=== PATIENT | female | born 1965 | race Caucasian/White ===

== ENCOUNTER 2020-06-06 08:00 | Outpatient (RCR) | payer BC, SELFPAY ==
--- NOTE | 2020-06-06 10:43 | PTOPEVAL ---
Thank you for referring Raine Garza to [facility].? The patient is scheduled to be seen for therapy? ____x/week for ___ weeks. Please review, sign, date and return this plan of care SOUTH. I agree with and certify that the following plan of care is medically necessary. Referring Physician Date Admitting Provider: Attending Provider: LAVELL MONTANA Referring Provider: DANAY Outpatient Evaluation Start: 06/06/20 08:02 Freq: Status: Active Protocol: Document 06/06/20 08:02 ACR (Rec: 06/06/20 09:43 ACR [id number]) Therapy Assessment Status Assessment Status Assessment Status Evaluation Evaluation Information Problem Diagnosis Parkinsons Onset 06/10/19 Subjective Information Patient states she has had Query Text:As Reported By Patient/ balance issues, but it has Family gotten worse the past year. She states she has had about 4 -5 falls in the past year. Patient states she trips easily, scuffs her feet, is unable to walk backwards and has difficulty with turning. Patient states she has difficulty with just about everything because she is afraid of falling. She states that the stairs are difficult because of the starting and stopping. Prior Level of Function Activity Level (Last 3 Months) Occupation homemaker Hand Dominance Right Activity of Daily Living Ability Independent Indoor/Home Mobility Independent Community Mobility Independent Stairs Ability Needs Some Help Functional Cognition (Planning, Shopping Independent , Taking Medications) Cooking Yes Cleaning Yes Laundry Yes Shopping Yes Driving Yes Pain Assessment Timing of Pain Assessment Timing of Pain Assessment Pre-Treatment Self Report Self Report Pain Level 0 Pain Score Pain Score 0: Self Report Interventions Used Interventions Used By Clinicians Activity or ADL's,Education, Exercise Lower Extremity Muscle Strength Testing Hip Strength Bilateral Hip Flexion Strength 4 Good Hip Abduction Strength 4 Good Knee Strength Bilateral Knee Flexion Strength 4 Good Knee Extension Strength 3+ Fair + Ankle Strength Bilateral
--- NOTE | 2020-07-14 16:54 | PTOPEVAL ---
Thank you for referring Raine Garza to [facility].? The patient is scheduled to be seen for therapy? ____x/week for ___ weeks. Please review, sign, date and return this plan of care SOUTH. I agree with and certify that the following plan of care is medically necessary. Referring Physician Date Admitting Provider: Attending Provider: LAVELL MONTANA Referring Provider: Jose EnriquePT Outpatient Evaluation Start: 06/06/20 08:02 Freq: Status: Active Protocol: Document 07/14/20 14:02 ACR (Rec: 07/14/20 15:34 ACR [id number]) Therapy Assessment Status Assessment Status Assessment Status Progress Evaluation Information Problem Diagnosis Parkinsons Onset 06/10/19 Subjective Information Patient states that since Query Text:As Reported By Patient/ beginning therapy, maneuvering Family around the house and her static balance has gotten better. She continues to have difficulty with walking, stairs, dynamic balance. She still cannot get in and out of the bathtub and if she medicine is off she is shaky. She also states she is pretty stiff. Pain Assessment Timing of Pain Assessment Timing of Pain Assessment Assessment Self Report Self Report Pain Level 0 Pain Score Pain Score 0: Self Report Lower Extremity Muscle Strength Testing Hip Strength Bilateral Hip Flexion Strength 4 Good Hip Abduction Strength 4 Good Knee Strength Bilateral Knee Flexion Strength 4+ Good + Knee Extension Strength 4 Good Ankle Strength Bilateral Ankle Dorsiflexion Strength 5 Normal Ankle Plantarflexion Strength 5 Normal Muscle Length Testing Muscle Length Testing Piriformis w/Hip Flexion >90 Degrees (R) Moderate Tightness,(L) Moderate Tightness Left Hamstring Length 25 Query Text:(90 - 90 Position) Right Hamstring Length 30 Query Text:(90 - 90 Position) Balance Assessment Tinetti Balance Assessment Sitting Balance Steady, safe Ability to Arise Able, uses arms to help Attempts to Arise Arises on 1st attempt Immediate Standing Balance Steady w/o support Standing Balance Narrow stance w/o support Nudged Response Staggers, catches self Standing with Eyes Closed Steady Step Pattern Turning 360 Degrees Continuous steps Stability Turning 360 Degrees Steady Sitting Down Safe, steady Initiation of Gait
--- NOTE | 2020-08-10 17:27 | PCPTNOTE ---
On 08/10/20, the student, [Linh Jordan, [facility] ], provided care and completed [employer] documentation on this patient. I have reviewed the student's documentation and agree with the findings.
--- NOTE | 2020-08-17 16:56 | PCPTNOTE ---
On 08/17/20, the student, [Linh Jordan, [facility] ], provided care and completed [employer] documentation on this patient. I have reviewed the student's documentation and agree with the findings.
== END 2020-08-26 13:35 | disposition home or self-care (01) ==
LOC: CHSPT 08:00
DX: G20 Parkinson's disease (principal)
CPT/HCPCS: 97110; 97112; 97161; 97530

== ENCOUNTER 2022-06-26 14:00 | Outpatient (RCR) | payer OTHER, SELFPAY ==
--- NOTE | 2022-04-04 21:50 | BUPTOPEVAL1 ---
Assessment and note entered by JT File, PT Evaluation Information Assessment Status Evaluation Diagnosis parkinsons Onset 03/01/22 Subjective Information patient reports she had the DBS surgery in december of 2021. she reports as part of her recovery she is now ready to work on her balance, endurance, walking, and strength. she reports she has gone through several adjustements on the DBS. she reports she is now more stable on her feet, but still feels unsteady. she reports she has fallen a few times since the beginning of the year . she reports she returns to the MD for adjustment of the DBS on 04/02/22. she reports thus far she feels the DBS has helped, but reports she still needs some adjustments. she reports when she falls she mostly looses her balance. Reported Pain Level Pain Score 0: Self Report Assessment PT Clinical Summary mrs. mcpherson presents to skilled PT services for rehab following implantation of a DBS. she presents this date with continued deficits in coordination, balance, ambulation safety, and functional activity performance/independence. she would benefit from continued skilled PT to address her objective/functional deficits to achieve a better quality of life. Plan of Care Interventions Gait Training,Neuro Re-education,Patient/Caregiver Educati,Therapeutic Activities,Therapeutic Exercise PT Services Indicated Yes Treatment Frequency and 3x weekly for 12 visits Duration These treatments will address the objective and functional deficits as defined above. The patient will be advanced safely and appropriately in order for the patient to progress towards his/her prior level of function. Additional exercises will be introduced and as well as a comprehensive home exercise program upon discharge, if needed, ?to ensure carryover of functional gains achieved in the clinic. This treatment plan has been reviewed and agreement upon by the patient.
--- NOTE | 2022-04-18 07:16 | BUPTOPEVAL1 ---
Assessment and note entered by [facility] Evaluation Information Assessment Status Progress Diagnosis parkinson's disease Onset 03/01/22 Subjective Information Pt. reports that she is still experiencing occasional falls. She states that despite this she has notices her walking is improved. She continues to deny any use of an AD. Reported Pain Level Pain Score 0: Self Report Assessment PT Clinical Summary Pt. functional testing scores have demonstrates no signficaint change at this time. Discussed with pt. the possibility of use of a walker in the home to decrease fall. risk. She has currently attended at total of 9 treatment sessions. At this time recommend continued Plan of Care Interventions Gait Training,Neuro Re-education,Therapeutic Activities,Therapeutic Exercise PT Services Indicated Yes Treatment Frequency and Continue treatment 2x/week for 6 visits Duration These treatments will address the objective and functional deficits as defined above. The patient will be advanced safely and appropriately in order for the patient to progress towards his/her prior level of function. Additional exercises will be introduced and as well as a comprehensive home exercise program upon discharge, if needed, ?to ensure carryover of functional gains achieved in the clinic. This treatment plan has been reviewed and agreement upon by the patient.
--- NOTE | 2022-05-07 10:54 | PTOPREEVAL ---
Assessment and note entered by Jessica Wolfe DPT Evaluation Information Assessment Status Re-evaluation Diagnosis parkinson's disease Onset 03/01/22 Subjective Information Patient reports she has noticed an improvement in LE strength, balance and endurance. She reports her fear of falling seems to lead to most of her falls. She returns to MD for DBS adjustment today. Reported Pain Level Pain Score 0: Self Report Assessment PT Clinical Summary Patient demonstrates improvement in balance this date. She demonstrates improved TUG, STS and Tinneti balance scores decreasing her risk of falls. She continues to have impaired LE strength and balance and would benefit from continued skilled PT to address remaining impairments and return to PLOF. Plan of Care Interventions Gait Training,Neuro Re-education,Therapeutic Activities,Therapeutic Exercise PT Services Indicated Yes Treatment Frequency and Continue treatment 2x/week for 6 visits Duration These treatments will address the objective and functional deficits as defined above. The patient will be advanced safely and appropriately in order for the patient to progress towards his/her prior level of function. Additional exercises will be introduced and as well as a comprehensive home exercise program upon discharge, if needed, ?to ensure carryover of functional gains achieved in the clinic. This treatment plan has been reviewed and agreement upon by the patient.
--- NOTE | 2022-05-28 17:46 | BUSTOPEVAL1 ---
Assessment and note entered by BARBIE Mejia Evaluation Information Assessment Status Evaluation Diagnosis Parkinson's disease Subjective Information Patient was diagnosed with Parkinson's disease in 2017 but has noticed an increase in difficulty speaking with impaired speech intelligibility. She often has to repeat herself and feels that her speech is more slurred than it was previously. Reported Pain Level Pain Score 0: Self Report Pain Score 0: Self Report Pain Score 0: Self Report Pain Score 0: Self Report Pain Score 0: Self Report Pain Score 0: Self Report Pain Score 0: Self Report Pain Score 0: Self Report Pain Score 0: Self Report Pain Score 0: Self Report Pain Score 0: Self Report Pain Score 0: Self Report Pain Score 0: Self Report Pain Score 0: Self Report Pain Score 0: Self Report Pain Score 0: Self Report Pain Score 0: Self Report Pain Score 0: Self Report Pain Score 0: Self Report Pain Score 0: Self Report Pain Score 0: Self Report Pain Score 0: Self Report Assessment ST Clinical Summary Patient was referred for an ST evaluation due to concerns with worsening speech intelligibility due to Parkinson's disease. The patient reported that she often has to repeat herself and has more difficulty as the day progresses. Increased difficulty reported with more complex words and length of sentences/message spoken. The patient currently participates in [employer] group via zoom through [employer] and had a Deep Brain Stimulator placed 2021. Patient reported that she should begin to see improvements as the stimulator is adjusted around 6 months after placement. Various areas were assessed including; respiratory strength/coordination, speech intelligibility at the word, phrase, sentence, paragraph and conversation level, and oral motor strength/ coordination. Patient presented with 74% intelligible speec
--- NOTE | 2022-05-30 11:44 | PTOPDC ---
Assessment and note entered by Jessica Wolfe DPT Evaluation Information Assessment Status Evaluation Diagnosis parkinson's disease Onset 03/01/22 Subjective Information Patient reports she has not had any falls recently . She reports she has not used an AD at home. She reports compliance with HEP and reports that she continues to noticed improved balance Reported Pain Level Pain Score 0: Self Report Assessment PT Clinical Summary Patient was seen for 22 visits of skilled PT from 03/28/22-05/30/22. She made great progress in balance during POC. She demonstrates improved TUG, 5xSTS, and Tinetti scoring indicating a decrease in fall risk. She denies any recent falls and is compliant with HEP. She is appropriate for DC at this time. Plan of Care PT Services Indicated No
--- NOTE | 2022-06-28 14:03 | PCSTNOTE ---
This treatment is being continued on visit number [id number]. Please see documentation on both accounts to view progress. Completed interventions, outcomes, and problems have been marked as Inactive to facilitate the copying of the Care plan routine for recurring accounts.
--- NOTE | 2022-07-02 12:37 | PCSTNOTE ---
This treatment is being continued on visit number [id number]. Please see documentation on both accounts to view progress. Completed interventions, outcomes, and problems have been marked as Inactive to facilitate the copying of the Care plan routine for recurring accounts.
== END 2022-06-26 23:59 | disposition home or self-care (01) ==
LOC: CHSST 14:00
DX: G20 Parkinson's disease (principal)
CPT/HCPCS: 92507; 92522; 92524; 97110; 97112; 97161; 97530

== ENCOUNTER 2022-08-06 10:00 | Outpatient (RCR) | payer OTHER, SELFPAY ==
--- NOTE | 2022-07-02 12:37 | PCSTNOTE ---
The treatment documented on this account is a continuation of the treatment documented on visit number [id number]. Please see documentation on both accounts to view progress. The Plan of Care has been transitioned and updated within the new A#. I have addressed and agree with the discipline specific Problems, Interventions, and Goals for the current certification period. Completed interventions, outcomes, and problems have been marked as Inactive to facilitate the copying of the Care plan routine for recurring accounts.
--- NOTE | 2022-08-21 14:11 | PCSTNOTE ---
ST session cancelled for August 20 secondary to CR[employer]ER being out sick for the day.
--- NOTE | 2022-09-18 13:46 | BUSTOPDC ---
Assessment and note entered by Estefani oFrbes PROPERTY PRESERVATION SPECIALIST Evaluation Information Assessment Status Discharge - Pt Not Present Diagnosis Parkinson's disease Subjective Information Patient was diagnosed with Parkinson's disease in 2017 but has noticed an increase in difficulty speaking with impaired speech intelligibility. Patient has completed a total of 9 ST sessions to target speech intelligibility and voice with a slight improvement noted. Patient reported that depending on medication sometimes she speaks fluently but once she takes medication for Parkinson's disease it soon impacts her speech until medication has worn off again. Assessment ST Clinical Summary Patient was referred for an ST evaluation due to concerns with worsening speech intelligibility due to Parkinson's disease. The patient reported that has noticed some improvements in speech intelligibility through the use of trained compensatory techniques. Patient continues to demonstrated difficulty with overall speech skills due to current medication for Parkinson's disease . Patient reported that she is going to speak with doctors regarding medication and if any other options are available. Patient has reached max rehab potential at this time and will be discharged from . Patient's last ST session was on 08-06-22. Plan of Care Interventions Treatment of Speech,Treatment of Voice Treatment Frequency and Discharge patient at this time with max rehab Duration potential being met currently.
== END 2022-08-06 19:00 | disposition home or self-care (01) ==
LOC: CHSST 10:00
DX: G20 Parkinson's disease (principal)
CPT/HCPCS: 92507

== ENCOUNTER 2022-08-30 11:04 | Outpatient (RCR) | payer OTHER, SELFPAY ==
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
--- NOTE | 2022-08-30 11:56 | OPREHPOC ---
Outpatient Therapy Plan of Care This is a Multidisciplinary Plan of Care that may contain components documented by all disciplines (PT, OT, and ST.) PT Problem 1 PT Problem #1 Knowledge Deficit PT Goal 1 Goal The patient will demonstrate independence in a home exercise program to continue after discharge from formal PT. Target Visit 12 PT Problem 2 PT Problem #2 Impaired Balance PT Goal 1 Goal The patient will improve her Tinetti Balance score by 5 points demonstrating a less likely fall risk . Target Visit 12 PT Problem 3 PT Problem #3 Impaired Endurance PT Goal 1 Goal The patient will demonstrate improved hip abduction and extension strength to 4+/5 to provide support for gait and balance. Target Visit 12 PT Problem 4 PT Problem #4 Impaired Gait PT Goal 1 Goal The patient will be able to ambulate 600 ft with SBA during the 6 minute walk test with no LOB. Target Visit 12
--- NOTE | 2022-09-25 15:46 | PTOPPROGNS ---
Assessment and note entered by JT File, PT Evaluation Information Assessment Status Progress Diagnosis Parkinson's Disease, falls, poor balance Subjective Information Mrs. Garza reports no pain present throughout session today. Patient notes falling last week, and presents with bruises on her L wrist and L knee. She notes that since initiating physical therapy she feels like her balance and strength have improved. Assessment PT Clinical Summary Raine Garza has attended 10 sessions of skilled therapy to address poor balance and frequent falls . She desmonstrated improved times with TUG and 5 times sit to stand tests today, however no improvement in the Tinneti score. She displayed improved hip abduction strength, allowing for better ability to perform functional activities such as stair climbing. Patient continues to have difficulty with walking, static balance, and dynamic balance, causing her to be at high risk for falling. Patient will benefit from continued skilled PT to address these limitations. Plan of Care Interventions Gait Training,Neuro Re-education,Patient/Caregiver Educati,Therapeutic Activities,Therapeutic Exercise PT Services Indicated Yes Treatment Frequency and continue POC for 3 times a week for remaining 2 Duration visits These treatments will address the objective and functional deficits as defined above. The patient will be advanced safely and appropriately in order for the patient to progress towards his/her prior level of function. Additional exercises will be introduced and as well as a comprehensive home exercise program upon discharge, if needed, ?to ensure carryover of functional gains achieved in the clinic. This treatment plan has been reviewed and agreement upon by the patient.
--- NOTE | 2022-09-26 13:45 | OPREHPOC ---
Outpatient Therapy Plan of Care This is a Multidisciplinary Plan of Care that may contain components documented by all disciplines (PT, OT, and ST.) PT Problem 1 PT Problem #1 Knowledge Deficit PT Goal 1 Goal The patient will demonstrate independence in a home exercise program to continue after discharge from formal PT. Target Visit 12 Progress Partially Met Comment independent with current HEP, continue progressing PT Problem 2 PT Problem #2 Impaired Balance PT Goal 1 Goal The patient will improve her Tinetti Balance score by 5 points demonstrating a less likely fall risk . Target Visit 12 Progress Partially Met Comment progressing PT Problem 3 PT Problem #3 Impaired Endurance PT Goal 1 Goal The patient will demonstrate improved hip abduction and extension strength to 4+/5 to provide support for gait and balance. Target Visit 12 Progress Partially Met Comment progressing PT Problem 4 PT Problem #4 Impaired Gait PT Goal 1 Goal The patient will be able to ambulate 600 ft with SBA during the 6 minute walk test with no LOB. Target Visit 12 Progress Partially Met Comment distance achieved, patient still requires CGA for safety
--- NOTE | 2022-10-03 07:23 | PTOPREEVAL ---
Assessment and note entered by JT File, PT Evaluation Information Assessment Status Re-evaluation Diagnosis Parkinson's Disease, falls, poor balance Subjective Information Mrs. Garza reports feeling good today. She believes that her balance has improved since starting physical therapy and she notes no falls this week. She is leaving for a cruise next Saturday and feels comfortable walking with support for this trip. Assessment PT Clinical Summary Raine Garza has attended 12 sessions of skilled therapy to address poor balance and frequent falls . She demonstrated similar scores with TUG, 5xSTS, 6 min walk test, and Tinnetti balance as previous assessment on 09/25/22. Per the Tinetti patient is a high fall risk and would benefit from continued balance and coordination activities. Patient demonstrated improved balance righting during today's session, as she was able to regain balance ~90% of the time independently. She continues to show impairments in static balance, dynamic balance, walking, and strength. Patient would benefit from continued skilled therapy 1x/week in a maintenance type program due to her diagnosis of parkinsons disease to continue addressing impairments to improve/maintain her safety with ambulating in her home and in the community and decrease fall risk. Plan of Care Interventions Gait Training,Neuro Re-education,Patient/Caregiver Educati,Therapeutic Activities,Therapeutic Exercise PT Services Indicated Yes Treatment Frequency and 1 x/week for 4 visits Duration These treatments will address the objective and functional deficits as defined above. The patient will be advanced safely and appropriately in order for the patient to progress towards his/her prior level of function. Additional exercises will be introduced and as well as a comprehensive home exercise program upon discharge, if needed, ?to ensure carryover of functional gains achieved in the clinic. This treatment plan has been reviewed and agreement upon by the patient.
--- NOTE | 2022-10-03 07:23 | OPREHPOC ---
Outpatient Therapy Plan of Care This is a Multidisciplinary Plan of Care that may contain components documented by all disciplines (PT, OT, and ST.) PT Problem 1 PT Problem #1 Knowledge Deficit PT Goal 1 Goal The patient will demonstrate independence in a home exercise program to continue after discharge from formal PT. Target Visit 12 Progress Met Comment independent with current HEP, continue progressing PT Problem 2 PT Problem #2 Impaired Balance PT Goal 1 Goal The patient will improve her Tinetti Balance score by 5 points demonstrating a less likely fall risk . Target Visit 16 Progress Partially Met Comment progressing PT Problem 3 PT Problem #3 Impaired Endurance PT Goal 1 Goal The patient will demonstrate improved hip abduction and extension strength to 5/5 to provide support for gait and balance. Target Visit 16 Progress Partially Met Comment goal met, adjusted to continue strengthening activities PT Problem 4 PT Problem #4 Impaired Gait PT Goal 1 Goal The patient will be able to ambulate 600 ft with SBA during the 6 minute walk test with no LOB. Target Visit 16 Progress Partially Met Comment distance achieved, patient still requires CGA for safety
--- NOTE | 2022-12-25 16:40 | PCPTNOTE ---
Patient discharged due to completion of POC
== END 2022-10-05 23:59 | disposition home or self-care (01) ==
LOC: CHSPT 11:04
DX: G20 Parkinson's disease (principal); R26.81 Unsteadiness on feet; R29.6 Repeated falls
CPT/HCPCS: 97112; 97161; 97530; 97750

== ENCOUNTER 2023-01-25 14:34 | Outpatient (RCR) | payer OTHER, SELFPAY ==
--- NOTE | 2023-01-25 15:37 | OPREHPOC ---
Outpatient Therapy Plan of Care This is a Multidisciplinary Plan of Care that may contain components documented by all disciplines (PT, OT, and ST.) PT Problem 1 PT Problem #1 Knowledge Deficit PT Goal 1 Goal Patient to demonstrate independence with HEP Target Visit 5 PT Problem 2 PT Problem #2 Impaired Functional Mobil PT Goal 1 Goal 1. Patient to ambulate 1000' during 6 min walk test to improve community ambulation 2. Patient to improve Tinetti by 5 points to decrease fall risk 3. Patient to report no falls while performing hosue hold tasks since start of PT Target Visit 10 PT Problem 3 PT Problem #3 Impaired Gait PT Goal 1 Goal Patient to ambulate with no cross over stepping to decrease fall risk Target Visit 10
--- NOTE | 2023-01-25 15:37 | PTOPEVAL1 ---
Assessment and note entered by Jessica Wolfe DPT Evaluation Information Assessment Status Evaluation Diagnosis weakness, falls Onset 01/01/23 Subjective Information Patient has history of Parkinson's with decreased balance and falls. She reports she has a DBS and is getting it adjusted every 2 months. She reports she thinks the DBS adjustments and helping. She reports she is due for an adjustment on 01/29/23. She reports she is not using an AD and had a falls a few weeks ago getting out of the shower. She reports difficulty wtih balance, cleaning out the instrument designer, reaching into cabinets and doing her laundry. She is not driving and is at home alone throughout the day. Reported Pain Level Pain Score 0: Self Report Assessment PT Clinical Summary Mrs. Garza is a 57 year old female who presnts to PT with decreased balance and falls. Patient demonstrates impaired balance with functional testing and impaired gait impairing her ability to ambulate within the home and in the community and complete house hold tasks without falls. She would benefit from skilled PT to address impairments and return to PLOF. Plan of Care Interventions Gait Training,Hot Pack/Cold Pack,Manual Therapy, Neuro Re-education,Patient/Caregiver Educati, Therapeutic Activities,Therapeutic Exercise PT Services Indicated Yes Treatment Frequency and 2x weekly for 10 visits Duration These treatments will address the objective and functional deficits as defined above. The patient will be advanced safely and appropriately in order for the patient to progress towards his/her prior level of function. Additional exercises will be introduced and as well as a comprehensive home exercise program upon discharge, if needed, ?to ensure carryover of functional gains achieved in the clinic. This treatment plan has been reviewed and agreement upon by the patient.
--- NOTE | 2023-03-01 13:51 | OPREHPOC ---
Outpatient Therapy Plan of Care This is a Multidisciplinary Plan of Care that may contain components documented by all disciplines (PT, OT, and ST.) PT Problem 1 PT Problem #1 Knowledge Deficit PT Goal 1 Goal Patient to demonstrate independence with HEP Target Visit 5 Progress Met PT Problem 2 PT Problem #2 Impaired Functional Mobil PT Goal 1 Goal 1. Patient to ambulate 1000' during 6 min walk test to improve community ambulation 2. Patient to improve Tinetti by 5 points to decrease fall risk 3. Patient to report no falls while performing hosue hold tasks since start of PT Target Visit 18 Progress Partially Met PT Problem 3 PT Problem #3 Impaired Gait PT Goal 1 Goal Patient to ambulate with no cross over stepping to decrease fall risk Target Visit 18 Progress Partially Met
--- NOTE | 2023-03-01 13:51 | PTOPREEVAL ---
Assessment and note entered by Jessica Wolfe DPT Evaluation Information Assessment Status Evaluation Diagnosis weakness, falls Onset 01/01/23 Subjective Information Patient reports since last DBS adjustment she feels like her legs are weaker and have poor coordination. She has had one fall since start of care where she is unsure of what was the cause. Reported Pain Level Pain Score 0: Self Report Assessment PT Clinical Summary Mrs. Garza has been seen for 10 visits of skilled PT. She demonstrates improve balance this date with Tinetti scoring. She continues to have deficts in balance with 6 min walk test and gait mechanincs. She she has had 1 fall since start of care. She would benefit from continued skilled PT to address remaining impairments and return to PLOF. Plan of Care Interventions Gait Training,Hot Pack/Cold Pack,Manual Therapy, Neuro Re-education,Patient/Caregiver Educati, Therapeutic Activities,Therapeutic Exercise PT Services Indicated Yes Treatment Frequency and continue 2x weekly for 8 visits Duration These treatments will address the objective and functional deficits as defined above. The patient will be advanced safely and appropriately in order for the patient to progress towards his/her prior level of function. Additional exercises will be introduced and as well as a comprehensive home exercise program upon discharge, if needed, ?to ensure carryover of functional gains achieved in the clinic. This treatment plan has been reviewed and agreement upon by the patient.
--- NOTE | 2023-04-05 14:40 | OPREHPOC ---
Outpatient Therapy Plan of Care This is a Multidisciplinary Plan of Care that may contain components documented by all disciplines (PT, OT, and ST.) PT Problem 1 PT Problem #1 Knowledge Deficit PT Goal 1 Goal Patient to demonstrate independence with HEP Target Visit 5 Progress Met PT Problem 2 PT Problem #2 Impaired Functional Mobil PT Goal 1 Goal 1. Patient to ambulate 1000' during 6 min walk test to improve community ambulation 2. Patient to improve Tinetti by 5 points to decrease fall risk 3. Patient to report no falls while performing house hold tasks since start of PT Target Visit 18 Progress Not Met PT Problem 3 PT Problem #3 Impaired Gait PT Goal 1 Goal Patient to ambulate with no cross over stepping to decrease fall risk Target Visit 18 Progress Not Met
--- NOTE | 2023-04-05 14:40 | PTOPDC ---
Assessment and note entered by Jessica Wolfe DPT Evaluation Information Assessment Status Re-evaluation Diagnosis weakness, falls Onset 01/01/23 Subjective Information patient reports she has not had any falls since last re-evaluation. she reports her balance and dyskinesia's have improve Reported Pain Level Pain Score 0: Self Report Assessment PT Clinical Summary Mrs. Garza attended 17 visits of skilled PT with good progression towards goals. She did not meet goals but did progress well. She has not had any falls since last re-evaluation and is independent with HEP. She will be discharged at this time. Plan of Care PT Services Indicated No
== END 2023-04-25 23:59 | disposition home or self-care (01) ==
LOC: CHSPT 14:34
DX: G20.B2 Parkinson's disease with dyskinesia, with fluctuations (principal)
CPT/HCPCS: 97110; 97112; 97150; 97161; 97530; 97750

== ENCOUNTER 2023-05-19 17:40 | Emergency (ER) | payer OTHER, SELFPAY ==
--- NOTE | ~2023-05-19 | CT_ITS ---
EXAMINATION: CT brain wo con DATE: 05/19/2023 18:18 INDICATION: fall- Posterior skull laceration/Headache/cervical pain . TECHNIQUE: Computed tomography (CT) of the head was performed without intravenous contrast. The mA wa s adjusted according to patient size. Iterative reconstruction technique was employed. The dose-lengt h product was 681.00 mGy-cm. COMPARISON: None. FINDINGS: No acute intracranial hemorrhage or extra-axial fluid collection. No hydrocephalus, mass, or herniation. No acute ischemic infarct. Unremarkable dural venous sinus attenuation. No acute osseous abnormality. Posterior laceration/scalp contusion with skin arianna. Bilateral deep brain stimulators. The aerated spaces are clear. IMPRESSION: No acute intracranial process. Reviewed, dictated and finalized at location K.
--- NOTE | ~2023-05-19 | CT_ITS ---
EXAMINATION: CT cervical spine wo con DATE: 05/19/2023 18:18 INDICATION: fall- Posterior skull laceration/Headache/cervical pain TECHNIQUE: Computed tomography (CT) of the cervical spine was performed without intravenous contrast. Automated exposure control and iterative reconstruction technique were employed. The dose-length pro duct was 112.55 mGy-cm. COMPARISON: None. FINDINGS: Vertebral Body Alignment: Intact. Craniocervical and atlantoaxial alignment: Moderate degenerative change. Alignment intact. Osseous structures/fracture: No evidence of a lytic or blastic process in the visualized spine. No e vidence of acute fracture. Cervical soft tissues: The paraspinal soft tissues planes are maintained. Degenerative changes: Degenerative changes, without severe neural foraminal or central canal narrowin g. IMPRESSION: No acute fracture or traumatic malalignment in the cervical spine. Reviewed, dictated and finalized at location K.
[2023-05-19 17:40] VITALS: BP 117/74; PULSE 83; RESP 18; TEMP 36.3; O2SAT 100
--- NOTE | 2023-05-19 17:53 | ED.HEATRA ---
HPI - Head Injury General Chief complaint: Fall Stated complaint: fall and head lac Time Seen by Provider: 05/19/23 17:53 Source: patient Mode of arrival: ambulatory Limitations: no limitations History of Present Illness HPI Narrative: Patient is a 58-year-old female with Parkinson's disease and mechanical fall prior to arrival. She fell on a stool at home from ground level and landed on the back of her head. No loss of consciousness. She sustained laceration. Tetanus shot up-to-date in the past few years. Complaint: head injury Onset (ago): minute(s) Arrival Conditions: C-spine immobilization present Mechanism of Injury: fall ( Mechanical) Place: home Loss of Consciousness: no Location of injury: occipital Severity: moderate Severity scale (1-10): 4 Quality: sharp Radiation: none Other Injuries: none Context: other ( Parkinson's disease) Associated symptoms: denies other symptoms Related Data Allergies Allergy/AdvReac Type Severity Reaction Status Date / Time sertraline Allergy Unknown Verified 04/05/21 17:02 venlafaxine Allergy Unknown Verified 04/05/21 17:02 Review of Systems Review of Systems: All systems reviewed & are unremarkable except as noted in HPI and below Constitutional: Constitutional: Reports no additional constitutional complaints Eyes: Eyes: Reports no additional eye complaints ENT: Reports system reviewed and no additional complaints, except as documented Cardiovascular: Cardiovascular: Reports no additional cardiovascular complaints Respiratory: Respiratory: Reports no additional respiratory complaints Gastrointestinal: Gastrointestinal: Reports no additional gastrointestinal complaints Genitourinary: Genitourinary: Reports no additional female genitourinary complaints Musculoskeletal: Musculoskeletal: Reports no additional musculoskeletal complaints Integumentary/Breasts: Skin/Breast: Reports system reviewed and no additional complaints, except as docu Neurologic: Reports system reviewed and no additional complaints, except as documented Psychiatric: Psychiatric: Reports no additional psychiatric complaints Endocrine: Endocrine: Reports no additional endocrine complaints Hematologic/Lymphatic: Hematologic/Lymphatic: Reports no additional hematologic/lymphatic complaints Allergic/Immunologic: Allergic/Immunologic: Reports no additional allergic/immunologic complaints PMFSH Social History Social History Smoking status: Never smoker Alcohol intake: current Exam Const: General: healthy appearing Nutritional Appearance: well nourished Orientation/consciousness: patient oriented x3 HENMT: Head: normal to inspection Ears: external ears normal Face/Nose/Sinus: Normal external nose present Eyes: Conjunctivae: conjunctivae normal Pupils: Equal, round and reactive pupils present EOM: EOMs intact bilaterally Neck: Neck: normal visual inspection Chest: Chest palpation & inspection: normal inspection of the chest Resp: Effort & Inspection: normal respiratory effort and not labored Auscultation: clear to auscultation bilaterally Cardio: Rate: regular rate Rhythm: regular rhythm Heart sounds: no murmurs GI: Inspection: non-distended GI Palp: Yes Soft to palpation and No Tenderness to palpation present (GI) Auscultation: normal bowel sounds : General: Yes bladder normal to palpation Back/Spine/Pelvis: Back: no CVA tenderness Skin: General skin exam: normal color Rashes: no rashes Wounds: no wounds Other: posterior scalp has a linear deep laceration 5 cm Neuro: General: patient oriented x3 Cranial nerves: Yes CN's II-XII intact bilaterally Speech: normal speech Extrem: General: normal to inspection Psych: Mental Status: mental status grossly normal Affect: normal affect Attitude: cooperative Course Vital Signs Vital signs: Vital Signs Temperature 36.3 C L 05/19/23 17:40 Puls
[2023-05-19] MEDS: HYDROcodone/acetaminophen (*CRX) 5-325 MG TABLET 1 TAB PO (18:30)
[2023-05-19] MEDS: NEOMYCIN/POLYMYXIN/BACITRACIN OINTMENT PACKET 1 PACKET TOPICAL (18:38)
--- NOTE | 2023-05-19 18:53 | PC.NURSE ---
1829 c-collar removed as ordered per dr ibrahim
== END 2023-05-19 18:48 | disposition home or self-care (01) ==
LOC: CHSED 18:32
PROVIDERS: Emergency Provider Emergency Medicine; PCP Family Medicine
DX: S01.01XA Laceration without foreign body of scalp, initial encounter (principal); W18.30XA Fall on same level, unspecified, initial encounter
CPT/HCPCS: 12002; 70450; 72125; 99284; A9270

== ENCOUNTER 2024-07-22 15:00 | Outpatient (RCR) | payer OTHER, SELFPAY ==
--- NOTE | 2024-04-24 16:33 | OPREHPOC ---
Outpatient Therapy Plan of Care This is a Multidisciplinary Plan of Care that may contain components documented by all disciplines (PT, OT, and ST.) PT Problem 1 PT Problem #1 Knowledge Deficit PT Goal 1 Goal / Goal Update *indep with HEP Target Visit 10 PT Problem 2 PT Problem #2 Impaired Strength PT Goal 1 Goal / Goal Update *improve LE strength,to improve transfer and gait skills: pt static stand without support x 3 minutes Target Visit 10 PT Goal 2 Goal / Goal Update *sit/stand transfer with 1 UE use and on first trial, with correct technique. Target Visit 10 PT Problem 3 PT Problem #3 Impaired Functional Mobility PT Goal 1 Goal / Goal Update * 2 minute walking test distance with wheeled walker, 250' Target Visit 10 PT Goal 2 Goal / Goal Update *Tinetti balance/gait score of 18/24, to decrease risk for falls and improve mobility PT Problem 4 PT Problem #4 Impaired Gait PT Goal 1 Goal / Goal Update * with 2 minute walking test, step length pass other foot Target Visit 10
--- NOTE | 2024-04-24 16:33 | PTOPEVAL1 ---
Assessment and note entered by Melony Alvarez, PT Evaluation Information Assessment Status Evaluation Diagnosis Parkinson's Disease ICD-10 Condition Codes (PT) Repeated falls R29.6,Difficulty Walking R26.2, Abnormalities of gait and mobility R26.9,Weakness R53.1 Onset May 2023 Subjective Information more problems with walking and falls, in April went to ER with head stitches, gradual decline with walking; was using a 3 wheeled walker, but due to falls, started using the w/c and walking only by holding onto her ; pushes her in the w/c in the house; since April fall and more w/c use, have not had any falls; have a home pedal machine, do about 20 minutes every day; have had PT in the past, but has been awhile activity: home with Emmanuel, 2 steps from garage; is primary caregiver to pt; walk in shower with built in seat- assist into shower seat and she can wash indep; dresses her. they have a house keeper; GOAL: be able to help with home chores and more activity; Reported Pain Level Pain Score 0: Self Report Assessment PT Clinical Summary Raine has the diagnosis of decrease gait, balance and mobility, with Parkinson's and falls. She has had a gradual decline and now using the w/c for mobility in the home, with pushing her. And walking only with holding onto her . Due to increase falls, her has put the walker to the side and not letting her use it. She has limited outings into the community. With the evaluation: she has decreased R and L LE strength; decreased ability for sit./stand transfers, requires multiple attempts, both UE use and CGA for safety; 2 minute walking test with wheeled walker 150' and maximum walking distance of 330' in 4 minutes and 50 seconds. Tinetti balance/gait score of 10/24= high risk for falls. Skilled PT services are indicated to increase LE strength, transfer, gait and balance skills, with education for safety and HEP. Work with on how to assist pt and increase her indep. Plan of Care Interventions Gait Training,Neuro Re-education,Patient/Caregiver Education,Therapeutic Activities,Therapeutic Exercise PT Services Indicated Yes Treatment Frequency and 1-2x/wk for 10 visits Duration These treatments will address the objective and functional deficits as defined above. The patient will be advanced safely and appropriately in order for the patient to progress towards his/her prior level of function. Additional exercises will be introduced and as well as a comprehensive home exercise program upon discharge, if needed, ?to ensure carryover of functional gains achieved in the clinic. This treatment plan has been reviewed and agreement upon by the patient.
--- NOTE | 2024-04-29 15:09 | BUSTOPEVAL1 ---
Assessment and note entered by Estefani Forbes, MEDICAL LAB SCIENTIST Evaluation Information Assessment Status Evaluation Diagnosis Parkinson's Disease without Dyskinesia G20.A1 Other ICD-10 Condition Codes ( Dysarthria and Anarthria R47.1 ST) Subjective Information Patient was referred for a skilled ST evaluation due to recent changes in speech intelligibility due to Parkinson's disease progression. Patient and reported that the patient's speech continues to decline and the patient's often has to resort to yes/no questions. Patient reported that she has significant difficulty in communication with familiar and unfamiliar listeners resulting frequent loss of attempts to communicate and frustration. Patient participates in a group over the zoom one time per week to target speech skills. Throughout the assessment the patient spoke at a a slow rate of speech but often slurred all words together with very limited awareness to poor speech intelligibility. Reported Pain Level Pain Score 0: Self Report Pain Score 0: Self Report Assessment ST Clinical Summary Patient was referred for a skilled ST evaluation by her doctor due to a progression in communication difficulties as a result of Parkinson's Disease. The patient and reported that over the past 6 months the patient has continued to decline in speech skills. The patient's reported that he often resorts to use of yes/no questions to better attempt to communicate with patient due to poor speech intelligibility skills. Patient participated in skilled ST treatment in the past at [facility] with current MEDICAL LAB SCIENTIST with last session in July of 2022. At that time patient presented with severe dyskinesia but better overall communication abilities. Patient reported that the dyskinesia is gone now but her speech is much worse. Throughout the assessment the patient was tested through conversation, use of [employer] [facility], and portions of apraxia, dysarthria and voice testing. Patient presented with mild to no deficits in auditory comprehension and reading comprehension skills. Graphic expression was accurate at the word and phrase level. Increased difficulty was noted at the sentence level. Patient presented with slurred speech throughout verbal expression testing impacting overall skills . Difficulty noted with single syllable, bisyllabic and multi syllabic word imitation due to dysarthria impacting production of speech. Patient presented with good word finding skills through confrontational naming. To assess divergent naming skills in the next session. Patient was presented with [employer] [place] [employer] passage to read which consisted of 5 complex sentences. Patient demonstrated very poor speech intelligibility skills with 10% of speech understood. Patient presented with limited awareness to deficits in speech with recording played back for patient. Patient was very surprised at how difficult it was to understand her speech. Patient presented with adequate respiratory function through sustained phonation tasks but presented with difficulty in producing voiced sounds (difficulty producing the /z/ and / v/ sounds). When speaking patient presents with dysarthria and muscle tension dysphonia due to frequent pitch breaks and tension throughout speech. Recommendation for skilled ST treatment to target severe dysarthria R47.1 to improve overall speech intelligibility skills to more effectively communicate with familiar and unfamiliar listeners. To target production of speech at the word, phrase and sentence level along with oral motor skills to improve accuracy of productions. Recommendation for skilled ST treatment 1x/week for 10 visits to target dysarthria R47.1, Parkinson's disease G20.A1. Plan of Care Interventions Treatment of Speech Treatment Frequency and 1-x/week for 10 visits Duration These treatments will address the objective and functional deficits as defined above. The patient will be advanced safely and appropriately in order for the patient to progress towards his/her prior level of function. Additional exercises will be introduced and as well as a comprehensive home exercise program upon discharge, if needed, ?to ensure carryover of functional gains achieved in the clinic. This treatment plan has been reviewed and agreement upon by the patient.
--- NOTE | 2024-06-05 14:52 | OPREHPOC ---
Outpatient Therapy Plan of Care This is a Multidisciplinary Plan of Care that may contain components documented by all disciplines (PT, OT, and ST.) PT Problem 1 PT Problem #1 Knowledge Deficit PT Goal 1 Goal / Goal Update *indep with HEP 06-05-24 progress goal met continue towards goal Target Visit 17 PT Problem 2 PT Problem #2 Impaired Strength PT Goal 1 Goal / Goal Update *improve LE strength,to improve transfer and gait skills: pt static stand without support x 3 minutes 06-05-24 progress goal met NEW GOAL: * pt static stand with R/L shoulder flexion x 25 reps Target Visit 17 PT Goal 2 Goal / Goal Update *sit/stand transfer with 1 UE use and on first trial, with correct technique. 06-05-24 progress goal not met continue towards goal Target Visit 17 PT Problem 3 PT Problem #3 Impaired Functional Mobility PT Goal 1 Goal / Goal Update * 2 minute walking test distance with wheeled walker, 250' 06-05-24 progress goal not met continue towards goal Target Visit 17 PT Goal 2 Goal / Goal Update *Tinetti balance/gait score of 18/24, to decrease risk for falls and improve mobility 06-05-24 progress goal not met, continue towards goal Target Visit 17 PT Problem 4 PT Problem #4 Impaired Gait PT Goal 1 Goal / Goal Update * with 2 minute walking test, step length pass other foot 06-05-24 progress goal not met, inconsistent with step length continue towards goal Target Visit [address] Problem #[address] Goal 1 Goal / Goal Update 1. Patient and family will participate in home programming to promote carryover/generalization of skills to home environment. Target Visit [address] Problem #[address] Goal 1 Goal / Goal Update 1. Patient will imitate/produce single syllable target words with 90% accuracy in speech intelligibility skills with minimal cues. 2. Patient will imitate/produce multisyllabic target words with 90% accuracy in speech intelligibility skills with minimal cues. 3. Patient will imitate/produce phrases and sentences with 80% accuracy in speech intelligibility skills with minimal cues. 4. Patient will read simple/moderate complexity paragraphs with 75% accuracy in speech intelligibility skill with minimal cues. 5. Patient will recall strategies to improve speech intelligibly skills through SLOP (slow, loud, over articulate, pause) with 90% accuracy and minimal cues. Target Visit 10
--- NOTE | 2024-06-05 14:52 | PTOPPROG ---
Assessment and note entered by Melony Alvarez, PT Assessment Status progress Diagnosis Parkinson's Disease ICD-10 Condition Codes (PT) Repeated falls R29.6,Difficulty Walking R26.2, Abnormalities of gait and mobility R26.9,Weakness R53.1 Onset May 2023 Subjective Information transfers are better; walking little more at home, but mostly use the wheelchair to get around; have been doing the exercises at home; have not had any falls since coming to therapy; is tired today; after walking, hips hurting; want to continue with therapy. Assessment PT Clinical Summary Raine has received 9 PT sessions. She reports she is tired today and did not do as well as wanted to do. And has not had any falls since starting therapy. Continues to use the wheelchair for mobility in home. With today's assessment: sit/stand from her wheelchair with use of both UE's, labored and required verbal cues to scoot to edge of seat, with CGA to minimal assist of one; during session , she had loss of balance with standing and starting to walk, lean to L and landed in a chair; balance: static stand without UE use x 3 minutes and 15 seconds; static stand with R/L shoulder flexion x 17 reps; 2 minute walking test distance with wheeled walker and CGA 115' with maximum walking tolerance of 115'; Tinetti balance score of 12/28; education for HEP. The goals were partially met. Continue PT. Plan of Care Interventions Gait Training,Neuro Re-education,Patient/Caregiver Education,Therapeutic Activities,Therapeutic Exercise PT Services Indicated Yes Treatment Frequency and 1-2x/wk for 8 visits Duration These treatments will address the objective and functional deficits as defined above. The patient will be advanced safely and appropriately in order for the patient to progress towards his/her prior level of function. Additional exercises will be introduced and as well as a comprehensive home exercise program upon discharge, if needed, ?to ensure carryover of functional gains achieved in the clinic. This treatment plan has been reviewed and agreement upon by the patient.
--- NOTE | 2024-07-06 09:59 | BUSTOPEVAL1 ---
Assessment and note entered by Estefani Forbes, SALES ADMINISTRATION SPECIALIST Evaluation Information Assessment Status Progress Diagnosis Parkinson's Disease without Dyskinesia G20.A1 Other ICD-10 Condition Codes ( Dysarthria and Anarthria R47.1 ST) Subjective Information Patient was referred for a skilled ST evaluation due to recent changes in speech intelligibility due to Parkinson's disease progression. Patient and reported that the patient's speech continues to decline and the patient's often has to resort to yes/no questions. Patient reported that she has significant difficulty in communication with familiar and unfamiliar listeners resulting frequent loss of attempts to communicate and frustration. Patient participates in a group over the zoom one time per week to target speech skills. Patient has completed a total of [address] treatments for dysarthria and anarthria. Patient has reported that she and her family have noticed improvements in her overall speech intelligibility skills with less need for repetition of message along with reduced frustration with communication breakdowns. She continues to require moderate/max cues to utilize trained compensatory techniques to improve speech production with increased difficulty at the sentence/conversation level indicating the continued need for skilled ST treatment at this time. Reported Pain Level Pain Score 0: Self Report Pain Score 0: Self Report Pain Score 0: Self Report Pain Score 0: Self Report Pain Score 0: Self Report Pain Score 0: Self Report Pain Score 0: Self Report Pain Score 0: Self Report Pain Score 0: Self Report Pain Score 0: Self Report Pain Score 0: Self Report Pain Score 0: Self Report Pain Score 0: Self Report Pain Score 0: Self Report Pain Score 0: Self Report Pain Score 0: Self Report Pain Score 0: Self Report Pain Score 0: Self Report Pain Score 0: Self Report Pain Score 0: Self Report Pain Score 0: Self Report Pain Score 0: Self Report Pain Score 0: Self Report Assessment ST Clinical Summary Patient was referred for a skilled ST evaluation by her doctor due to a progression in communication difficulties as a result of Parkinson's Disease. The patient and reported that over the past 6 months the patient has continued to decline in speech skills. The patient's reported that he often resorts to use of yes/no questions to better attempt to communicate with patient due to poor speech intelligibility skills. Patient participated in skilled ST treatment in the past at [facility] with current SALES ADMINISTRATION SPECIALIST with last session in July of 2022. At that time patient presented with severe dyskinesia but better overall communication abilities. Patient reported that the dyskinesia is gone now but her speech is much worse. Patient was presented with [employer] [place] [employer] [place] passage to read which consisted of 5 complex sentences. Patient demonstrated very poor speech intelligibility skills with 10% of speech understood at the time of evaluation. Patient completed the passage reading on 05-28-24 with an improvement in overall speech intelligibly with 25 % accuracy at this time. She continues to demonstrate tension, poor respiratory control, slurred speech and overall high rate of speech impacting intelligibility. When speaking patient presents with dysarthria and muscle tension dysphonia due to frequent pitch breaks and tension throughout speech. She continues to present with increased awareness to use of compensatory techniques to improve speech but continues to require moderate/max cues when attempting to speak at the sentence level. Patient has shown improvements in speaking at the single word level along with production of functional phrases with continued improvement in overall clarity of speech . Recommendation for skilled ST treatment to continue to target severe dysarthria R47.1 to improve overall speech intelligibility skills to more effectively communicate with familiar and unfamiliar listeners. To target production of speech at the word, phrase and sentence level along with oral motor skills to improve accuracy of productions. Recommendation for skilled ST treatment 1-2x/week for 10 visits to target dysarthria R47.1, Parkinson's disease G20.A1. These treatments will address the objective and functional deficits as defined above. The patient will be advanced safely and appropriately in order for the patient to progress towards his/her prior level of function. Additional exercises will be introduced and as well as a comprehensive home exercise program upon discharge, if needed, ?to ensure carryover of functional gains achieved in the clinic. This treatment plan has been reviewed and agreement upon by the patient.
--- NOTE | 2024-07-06 10:00 | OPREHPOC ---
Outpatient Therapy Plan of Care This is a Multidisciplinary Plan of Care that may contain components documented by all disciplines (PT, OT, and ST.) PT Problem 1 PT Problem #1 Knowledge Deficit PT Goal 1 Goal / Goal Update *indep with HEP 06-05-24 progress goal met continue towards goal Target Visit 17 PT Problem 2 PT Problem #2 Impaired Strength PT Goal 1 Goal / Goal Update *improve LE strength,to improve transfer and gait skills: pt static stand without support x 3 minutes 06-05-24 progress goal met NEW GOAL: * pt static stand with R/L shoulder flexion x 25 reps Target Visit 17 PT Goal 2 Goal / Goal Update *sit/stand transfer with 1 UE use and on first trial, with correct technique. 06-05-24 progress goal not met continue towards goal Target Visit 17 PT Problem 3 PT Problem #3 Impaired Functional Mobility PT Goal 1 Goal / Goal Update * 2 minute walking test distance with wheeled walker, 250' 06-05-24 progress goal not met continue towards goal Target Visit 17 PT Goal 2 Goal / Goal Update *Tinetti balance/gait score of 18/24, to decrease risk for falls and improve mobility 06-05-24 progress goal not met, continue towards goal Target Visit 17 PT Problem 4 PT Problem #4 Impaired Gait PT Goal 1 Goal / Goal Update * with 2 minute walking test, step length pass other foot 06-05-24 progress goal not met, inconsistent with step length continue towards goal Target Visit [address] Problem #[address] Goal 1 Goal / Goal Update 1. Patient and family will participate in home programming to promote carryover/generalization of skills to home environment. -patient continues to demonstrate improved participation in recommended activities to target speech skills. Target Visit [address] Problem #[address] Goal 1 Goal / Goal Update Intelligibility therapy: 1. Patient will imitate/produce single syllable target words with 90% accuracy in speech intelligibility skills with minimal cues. 07-01-24: Continue goal. 80% accuracy with moderate cues. 2. Patient will imitate/produce multisyllabic target words with 90% accuracy in speech intelligibility skills with minimal cues. 07-01-24: Continue goal. 80% accuracy with moderate cues. 3. Patient will imitate/produce phrases and sentences with 80% accuracy in speech intelligibility skills with minimal cues. 07-01-24: Continue goal. 65% accuracy with moderate cues to utilize trained compensatory techniques. 4. Patient will read simple/moderate complexity paragraphs with 75% accuracy in speech intelligibility skill with minimal cues. 07-01-24: Continue goal. 25% accuracy with max cues for 5 complex sentence paragraph. 5. Patient will recall strategies to improve speech intelligibly skills through SLOP (slow, loud, over articulate, pause) with 90% accuracy and minimal cues. 07-01-24: Goal met with 90% accuracy and minimal cues. GOAL ADDED: 07-01-24 1. Patient will complete 2-3 structured verbal exchanges utilizing speech strategies with 70% speech intelligibility. 2. Patient will speak at the phoneme, word and phrase level with 75 dB loudness average or louder with 90% accuracy and minimal cues. 07-01-24: sustained ah 71 dB, words- 70 dB, functional phrases- 69 dB Target Visit 10
--- NOTE | 2024-07-16 08:42 | STOPDC ---
Assessment and note entered by Meagan Lei LEAD BLENDER Evaluation Information Assessment Status Discharge - Pt Not Present Reported Pain Level Pain Score 0: Self Report Assessment ST Clinical Summary Spoke with patient's spouse who is agreeable with discharge. Spouse and therapist no longer feels progress noted. Plan of Care ST Services Indicated Yes
== END 2024-07-23 23:59 | disposition home or self-care (01) ==
LOC: ANHPT 15:00
PROVIDERS: PCP Family Medicine
DX: G20.A1 Parkinson's disease without dyskinesia, without mention of fluctuations (principal)
CPT/HCPCS: 92507; 92523; 97110; 97112; 97116; 97140; 97161; 97530

== ENCOUNTER 2024-07-29 09:31 | Outpatient (RCR) | payer OTHER, SELFPAY ==
--- NOTE | 2024-07-28 14:47 | PCPTNOTE ---
This treatment is being continued from visit number [id number] Please see documentation on both accounts to view progress. Completed interventions, outcomes, and problems have been marked as Inactive to facilitate the copying of the Care plan routine for recurring accounts.
--- NOTE | 2024-07-29 15:10 | OPREHPOC ---
Outpatient Therapy Plan of Care This is a Multidisciplinary Plan of Care that may contain components documented by all disciplines (PT, OT, and ST.) PT Problem 1 PT Problem #1 Knowledge Deficit PT Goal 1 Goal / Goal Update *indep with HEP 06-05-24 progress goal met continue towards goal -06-19 d/c goal met Target Visit 17 Progress Met PT Problem 2 PT Problem #2 Impaired Strength PT Goal 1 Goal / Goal Update *improve LE strength,to improve transfer and gait skills: pt static stand without support x 3 minutes 06-05-24 progress goal met NEW GOAL: * pt static stand with R/L shoulder flexion x 25 reps Target Visit 17 Progress Met PT Goal 2 Goal / Goal Update *sit/stand transfer with 1 UE use and on first trial, with correct technique. 06-05-24 progress goal not met continue towards goal 07-29-24 d/c goal not met Target Visit 17 Progress Not Met PT Problem 3 PT Problem #3 Impaired Functional Mobility PT Goal 1 Goal / Goal Update * 2 minute walking test distance with wheeled walker, 250' 06-05-24 progress goal not met continue towards goal -06-19 d/c goal not met, improved to 160' Target Visit 17 Progress Not Met PT Goal 2 Goal / Goal Update *Tinetti balance/gait score of 18/24, to decrease risk for falls and improve mobility 06-05-24 progress goal not met, continue towards goal -25 d/c goal not met,improved to Target Visit 17 Progress Not Met PT Problem 4 PT Problem #4 Impaired Gait PT Goal 1 Goal / Goal Update * with 2 minute walking test, step length pass other foot 06-05-24 progress goal not met, inconsistent with step length continue towards goal 6-4-25 d/c goal met Target Visit [address] Problem 1 ST Problem #[address] Goal 1 Goal / Goal Update 1. Patient and family will participate in home programming to promote carryover/generalization of skills to home environment. -patient continues to demonstrate improved participation in recommended activities to target speech skills. Target Visit [address] Problem #[address] Goal 1 Goal / Goal Update Intelligibility therapy: 1. Patient will imitate/produce single syllable target words with 90% accuracy in speech intelligibility skills with minimal cues. 07-01-24: Continue goal. 80% accuracy with moderate cues. 2. Patient will imitate/produce multisyllabic target words with 90% accuracy in speech intelligibility skills with minimal cues. 07-01-24: Continue goal. 80% accuracy with moderate cues. 3. Patient will imitate/produce phrases and sentences with 80% accuracy in speech intelligibility skills with minimal cues. 07-01-24: Continue goal. 65% accuracy with moderate cues to utilize trained compensatory techniques. 4. Patient will read simple/moderate complexity paragraphs with 75% accuracy in speech intelligibility skill with minimal cues. 07-01-24: Continue goal. 25% accuracy with max cues for 5 complex sentence paragraph. 5. Patient will recall strategies to improve speech intelligibly skills through SLOP (slow, loud, over articulate, pause) with 90% accuracy and minimal cues. 07-01-24: Goal met with 90% accuracy and minimal cues. GOAL ADDED: 07-01-24 1. Patient will complete 2-3 structured verbal exchanges utilizing speech strategies with 70% speech intelligibility. 2. Patient will speak at the phoneme, word and phrase level with 75 dB loudness average or louder with 90% accuracy and minimal cues. 07-01-24: sustained ah 71 dB, words- 70 dB, functional phrases- 69 dB Target Visit 10
--- NOTE | 2024-07-29 15:10 | PTOPDC ---
Assessment and note entered by Melony Alvarez, PT Evaluation Information Assessment Status Discharge Diagnosis Parkinson's Disease ICD-10 Condition Codes (PT) Repeated falls R29.6,Difficulty Walking R26.2, Abnormalities of gait and mobility R26.9,Weakness R53.1 Onset May 2023 Subjective Information have more strength with my transfers; no falls; have not been walking at home with her ; does stand at the bathroom sink, leaning on the sink; agrees to discharge PT. Reported Pain Level Pain Score 3: Self Report fingers/hands Assessment PT Clinical Summary Raine has received a total of 17 PT sessions. Compared to the last assessment: 2 minute walking test distance from 115' to 160' with the wheeled walker; step length is pass other foot with the walking test; static standing with alternating R/ L shoulder flexion x 25 reps without loss of balance; sit to stand transfer requires multiple attempts and both UE use; Tinetti balance/gait score from 12 to 13/28; education completed for HEP and gait training. She continues to use the wheel chair for mobility in home and community. The goals were partially met. Discharge PT services. She is to continue with the LE exercises and walking with her at home. Plan of Care PT Services Indicated No
== END 2024-07-30 17:32 | disposition home or self-care (01) ==
LOC: ANHPT 09:31
PROVIDERS: PCP Family Medicine
DX: G20.A1 Parkinson's disease without dyskinesia, without mention of fluctuations (principal); R39.15 Urgency of urination; R35.0 Frequency of micturition; N39.3 Stress incontinence (female) (male)
CPT/HCPCS: 97110; 97530

== ENCOUNTER 2024-09-29 11:00 | Outpatient (RCR) | payer OTHER, SELFPAY ==
--- NOTE | 2024-08-26 13:40 | OPREHPOC ---
Outpatient Therapy Plan of Care This is a Multidisciplinary Plan of Care that may contain components documented by all disciplines (PT, OT, and ST.) PT Problem 1 PT Problem #1 Knowledge Deficit PT Goal 1 Goal / Goal Update 1. Patient will perform independent HEP Target Visit 2 PT Problem 2 PT Problem #2 Impaired Strength PT Goal 1 Goal / Goal Update 1. Improve pelvic floor strength to 2/5 to reduce incontinence 2. Improve pelvic floor endurance to 5 seconds to reduce incontinence Target Visit 4 PT Problem 3 PT Problem #3 Impaired Functional ADLs PT Goal 1 Goal / Goal Update 1. Patient will report urinary incontinence no more than 1 time per week Target Visit 4
--- NOTE | 2024-08-26 13:40 | PTOPEVAL1 ---
Assessment and note entered by Isabella Walton DPT Evaluation Information Assessment Status Evaluation ICD-10 Condition Codes (PT) Weakness R53.1,Urge incontinence N39.41,Stress incontinence N39.3 Subjective Information Pt reports urinary incontinence that is worsening for a couple years. Will get urinary incontinence multiple times a week and wears depends all the time. Voids 4-5 times a day and none at night. Can hold urge to void about 30 minutes but will get incontinence upon making it to the toilet. No pain with urination. Denies fecal incontinence for the past couple years. BM once a day or every other day. Denies history of pelvic pain. Pt has been 2 times, 2 vaginal deliveries. Tearing with the first. No other SHOWROOM MANAGER history. No b/b history. Patient goal: get rid of the urine leaking Return to MD is not scheduled currently. Reported Pain Level Pain Score 0: Self Report Assessment PT Clinical Summary The patient is presenting to skilled therapy with a history of Parkinson's and several years of worsening urinary incontinence. She presents with decreased hip and abdominal strength and significantly decreased pelvic floor strength and endurance. She will benefit from skilled therapy to address strength and incontinence in order to improve function. Plan of Care Interventions Manual Therapy,Neuro Re-education,Patient/ Caregiver Education,Therapeutic Activities, Therapeutic Exercise PT Services Indicated Yes Treatment Frequency and 1 time a week for 4 visits Duration These treatments will address the objective and functional deficits as defined above. The patient will be advanced safely and appropriately in order for the patient to progress towards his/her prior level of function. Additional exercises will be introduced and as well as a comprehensive home exercise program upon discharge, if needed, ?to ensure carryover of functional gains achieved in the clinic. This treatment plan has been reviewed and agreement upon by the patient.
--- NOTE | 2024-09-29 11:35 | OPREHPOC ---
Outpatient Therapy Plan of Care This is a Multidisciplinary Plan of Care that may contain components documented by all disciplines (PT, OT, and ST.) PT Problem 1 PT Problem #1 Knowledge Deficit PT Goal 1 Goal / Goal Update 1. Patient will perform independent HEP Target Visit 2 Progress Met PT Problem 2 PT Problem #2 Impaired Strength PT Goal 1 Goal / Goal Update 1. Improve pelvic floor strength to 2/5 to reduce incontinence 2. Improve pelvic floor endurance to 5 seconds to reduce incontinence update 09/29/24 not reassesed Target Visit 4 PT Problem 3 PT Problem #3 Impaired Functional ADLs PT Goal 1 Goal / Goal Update 1. Patient will report urinary incontinence no more than 1 time per week update 09/29/24 1. improved Target Visit 4 Progress Partially Met
--- NOTE | 2024-09-29 11:35 | PTOPDC ---
Assessment and note entered by Isabella Walton DPT Evaluation Information Assessment Status Discharge ICD-10 Condition Codes (PT) Weakness R53.1,Urge incontinence N39.41,Stress incontinence N39.3 Subjective Information Pt reports overall her urinary incontinence has gotten better. Incontinence 3 times a week, voiding 4 times a day. Denies urinary incontinence once getting to the toilet. Reported Pain Level Pain Score 0: Self Report Assessment PT Clinical Summary The patient has made some progress in therapy and reports a decreased frequency of urinary incontinence. Patient would like to try independent HEP after this visit. She has been educated in a thorough HEP to continue progressing independently and educated to follow up with MD and/or PT as needed. Plan of Care PT Services Indicated No
== END 2024-09-29 12:47 | disposition home or self-care (01) ==
LOC: ANHPT 11:00
PROVIDERS: PCP Family Medicine
DX: N39.3 Stress incontinence (female) (male) (principal); R39.15 Urgency of urination; R35.0 Frequency of micturition
CPT/HCPCS: 97112; 97162; 97530